=== PATIENT | male | born 1960 | race Caucasian/White ===

== ENCOUNTER 2024-12-26 14:24 | Emergency (ER) | payer MEDICARE, OTHER ==
[~2024-12-26] VITALS: Ht 190.5 cm; Wt 108.9 kg
[2024-12-26] MEDS: TRAMADOL HCL 50 MG TAB PO ONE (15:44)
[2024-12-26] MEDS: KETOROLAC TROMETHAMINE 30 MG/ML VIAL IM STA (15:45)
[2024-12-26] MEDS ORDERED: NAPROXEN250 MG PO (16:19)
[2024-12-26 16:46] VITALS: PULSE 76; RESP 16; TEMP 98.5; O2SAT 95
== END 2024-12-26 16:46 | disposition home or self-care (01) ==
LOC: ER 14:54
DX: S83.8X2A Sprain of other specified parts of left knee, initial encounter (principal); X50.0XXA Overexertion from strenuous movement or load, initial encounter; Y93.01 Activity, walking, marching and hiking; Y92.89 Other specified places as the place of occurrence of the external cause; E11.9 Type 2 diabetes mellitus without complications; Z87.442 Personal history of urinary calculi
CPT/HCPCS: 73562; 99283; J1885